=== PATIENT | female | born 1975 | race American Indian/Alaskan Native ===

== ENCOUNTER 2019-09-09 21:04 | Emergency (ER) | payer SELFPAY ==
[2019-09-09] MEDS ORDERED: ASPIRIN 325 MG TAB PO ONE (22:24)
[2019-09-09 23:53] LABS: Basophils % (Auto) 0.7 % (0.0-1.8); Eosinophils # (Auto) 0.1 K/mm3 (0.0-0.4); Eosinophils % (Auto) 1.2 % (0.0-4.3); Hematocrit 37.6 % (30.3-42.9); Hemoglobin 13.3 gm/dl (10.1-14.3); Lymphocytes # (Auto) 2.1 K/mm3 (1.2-5.4); Lymphocytes % (Auto) 27.9 % (13.4-35.0); Mean Corpuscular HGB Conc 35 % (30-34); Mean Corpuscular Volume 88 fl (79-97); Monocytes # (Auto) 0.5 K/mm3 (0.0-0.8); Monocytes % (Auto) 7.1 % (0.0-7.3); Platelet Count 236 K/mm3 (140-440); Red Blood Count 4.27 M/mm3 (3.65-5.03); Red Cell Distribution Width 13.1 % (13.2-15.2)
--- NOTE | 2019-09-09 23:59 | XRay Report ---
CHEST 2 VIEWS INDICATION: Chest Pain. COMPARISON: FINDINGS: Support devices: None. Heart: Within normal limits. Lungs: No acute air space or interstitial disease. Pleura: No significant pleural effusion. No pneumothorax. Additional findings: None. IMPRESSION: 1. No acute findings. Signer Name: Manish Lopez MD Signed: 09/09/2019 11:55 PM Workstation Name: [id number]
[2019-09-10 00:20] LABS: BUN/Creatinine Ratio 22; Blood Urea Nitrogen 13 mg/dL (7-17); Calcium 9.8 mg/dL (8.4-10.2); Hemolysis Index 16
[2019-09-10] MEDS ORDERED: ONDANSETRON 4 MG/2 ML INJ IV ONE (01:25)
[2019-09-10] MEDS ORDERED: MORPHINE 4 MG/1 ML INJ IV ONE (01:25)
[2019-09-10] MEDS ORDERED: ASPIRIN 325 MG TAB ONE (02:03)
[2019-09-10 02:04] VITALS: BP 136/72
--- NOTE | 2019-09-10 02:21 | Emergency Department Report ---
ED Chest Pain HPI - General Chief Complaint: Chest Pain Stated Complaint: CP/HBP/DIZZY Time Seen by Provider: 09/10/19 01:11 Source: patient Mode of arrival: Ambulatory Limitations: No Limitations - History of Present Illness Initial Comments: 44-year-old female presents to the emergency department with complaint of a 5 day history of some episodic left-sided chest pain under her left breast. For the past 2 days she has been having some radiation up to the left side of her neck and down her left arm. It is associated with some sweating and some lightheadedness and occasional shortness of breath. Recently she has been finding her blood pressure to be elevated. One of her family members is a physician and told her to take some hydralazine. She says that this did not help with the blood pressure and it actually increased slightly. She has a past medical history of high cholesterol. She is a former smoker. She denies any family history of early cardiac disease or events. The patient lives in [place] and says that she had a full cardiac workup in March including a negative stress test. Severity scale (0 -10): 7 - Related Data Allergies Allergy/AdvReac Type Severity Reaction Status Date / Time levofloxacin [From Levaquin] Allergy Itching Verified 09/09/19 21:48 Heart Score - HEART Score History: Slightly suspicious EKG: Normal Age: 45-65 Risk factors: 1-2 risk factors Troponin: < normal limit HEART Score: 2 ED Review of Systems ROS: Stated complaint: CP/HBP/DIZZY Other details as noted in HPI Comment: All other systems reviewed and negative Constitutional: diaphoresis. denies: fever Eyes: denies: eye pain, vision change ENT: denies: ear pain, throat pain Respiratory: shortness of breath. denies: cough Cardiovascular: chest pain. denies: edema Gastrointestinal: denies: abdominal pain, vomiting Genitourinary: denies: dysuria, discharge Musculoskeletal: back pain. denies: arthralgia Skin: denies: rash, lesions Neurological: denies: weakness, numbness ED Past Medical Hx - Past Medical History Previous Medical History?: Yes Additional medical history: High Cholesterol - Surgical History Past Surgical History?: Yes Additional Surgical History: Hysterectomy, , - Social History Smoking Status: Former Smoker Substance Use Type: Alcohol ED Physical Exam - General Limitations: No Limitations - Other Other exam information: GENERAL: The patient is well-developed well-nourished. HEENT: Normocephalic. Atraumatic. Patient has moist mucous membranes. EYES: Extraocular motions are intact. NECK: Supple. Trachea is midline CHEST/LUNGS: Clear to auscultation. There is no respiratory distress noted. HEART/CARDIOVASCULAR: Regular. There is no tachycardia. ABDOMEN: Abdomen is soft, nontender. Patient has normal bowel sounds. There is no abdominal distention. SKIN: Skin is warm and dry. NEURO: The patient is awake, alert, and oriented. The patient is cooperative. Normal speech. MUSCULOSKELETAL: There is no tenderness or deformity. There is no limitation range of motion. There is no evidence of acute injury. ED Course Vital Signs 09/09/19 09/10/19 09/10/19 21:14 01:29 01:30 Temperature 98.9 F Pulse Rate 105 H 63 Respiratory 18 12 16 Rate Blood Pressure 162/78 129/64 O2 Sat by Pulse 99 98 Oximetry 09/10/19 09/10/19 09/10/19 01:45 02:00 02:15 Temperature Pulse Rate 62 62 59 L Respiratory 21 13 12 Rate Blood Pressure 129/64 136/72 136/72 O2 Sat by Pulse 99 100 96 Oximetry 09/10/19 09/10/19 09/10/19 02:31 02:45 03:01 Temperature Pulse Rate 63 57 L 67 Respiratory 11 L 12 16 Rate Blood Pressure 136/72 136/72 136/72 O2 Sat by Pulse 96 98 99 Oximetry 09/10/19 09/10/19 03:15 03:30 Temperature Pulse Rate 53 L 58 L Respiratory 12 10 L Rate Blood Pressure 136/72 136/72 O2 Sat by Pulse 97 96 Oximetry GERMAN score - German Score Age > 65: (0) No Aspirin use within the Past 7 Days: (1) Yes 3 or more CAD Risk Factors: (0) No 2 or more Angina events in past 24 hrs: (1) Yes Known CAD with more than 50% Stenosis: (0) No Elevated Cardiac Markers: (0) No ST Deviation Greater than 0.5mm: (0) No GERMAN Score: 2 ED Medical Decision Making - Lab Data Result diagrams: 09/09/19 22:49 09/09/19 22:49 - EKG Data -: EKG Interpreted by Me EKG shows normal: sinus rhythm, axis, intervals, QRS complexes, ST-T waves Rate: normal - EKG Data When compared to previous EKG there are: previous EKG unavailable Interpretation: normal EKG - Radiology Data Radiology results: image reviewed interpreted by me: Chest x-ray does not show any pneumonia, pneumothorax, focal consolidation, pleural effusions, or any other acute process. - Medical Decision Making This patient presents with a 5 day history of some sharp intermittent left-sided lower chest/rib pains, just below her left breast. She also has some recent radiation down the arm and to the neck. Her EKG does not show any signs of ST elevation GA or dysrhythmia. Chest x-ray does not show any pleural effusions, pneumothorax, pneumonia, focal consolidation, or any other acute process. The patient's labs have been unremarkable including negative troponins 2 and a negative d-dimer. The patient was given a dose of morphine and then Toradol with some improvement. Patient also came in complaining of some recent elevated blood pressures. She did have some elevated blood pressure readings when she first arrived but this may have been secondary to her discomfort and/or whitecoat syndrome as the blood pressure came down to a more reasonable level before any medications were given and has remained within the normal range throughout the rest of her ED course. For this reason, I did not feel that the patient needed to be started on any blood pressure medications at this time. We discussed staying away from foods that are high in salt and caffeinated products and keeping a blood pressure log. The patient has good follow-up with her care and cardiology when she returns to [place] in 24 hours. The patient has a low heart and GERMAN score. She had negative troponins 2. She had a negative stress test within the past 4-5 months. All of this together, the patient appears very low suspicion for coronary artery disease or for her chest pain being cardiac in etiology. Given its sharp spasmodic nature, I feel there is something that has irritated the nerves under her ribs. The patient has been instructed to return to the emergency department with any worsening of her symptoms, or with any acute distress. - Differential Diagnosis GA, costochondritis, PE, pneumonia, GERD Critical Care Time: No Critical care attestation.: If time is entered above; I have spent that time in minutes in the direct care of this critically ill patient, excluding procedure time. ED Disposition Clinical Impression: Rib pain on left side, Elevated blood pressure reading without diagnosis of hypertension Chest pain Qualifiers: Chest pain type: unspecified Qualified Code(s): R07.9 - Chest pain, unspecified Disposition: - TO HOME OR SELFCARE Is pt being admited?: No Condition: Stable Instructions: Chest Pain (ED) Additional Instructions: Please follow up with your primary care physician and greens picker when you return to [place]. In the meantime, return to the emergency Department with any worsening of your symptoms or any acute distress. Try and stay away from foods that are high in salt and caffeinated products. Keep a blood pressure log. Referrals: PRIMARY CARE, [Primary Care Provider] - 3-5 Days Time of Disposition: 03:44 Print Language: CITIZEN OF [place]
[2019-09-10] MEDS ORDERED: KETOROLAC 30 MG/1 ML INJ IV ONE (02:56)
== END 2019-09-10 03:55 | disposition home or self-care (01) ==
LOC: ED 21:04
DX: R07.89 Other chest pain (principal); R07.81 Pleurodynia; R03.0 Elevated blood-pressure reading, without diagnosis of hypertension; E78.00 Pure hypercholesterolemia, unspecified; Z90.710 Acquired absence of both cervix and uterus; Z87.891 Personal history of nicotine dependence; Z88.1 Allergy status to other antibiotic agents
CPT/HCPCS: 36415; 71046; 80048; 84443; 84484; 85025; 85379; 93005; 93010; 96374; 96375; 99284; J1885; J2270; J2405

== ENCOUNTER 2019-09-11 01:59 | Emergency (ER) | payer SELFPAY ==
[2019-09-11 02:27] VITALS: BP 135/83
== END 2019-09-11 20:16 | disposition left against medical advice (07) ==
LOC: ED 01:59
DX: R51 Headache (principal); Z53.21 Procedure and treatment not carried out due to patient leaving prior to being seen by health care provider